=== PATIENT | male | born 1950 | race Caucasian/White ===

== ENCOUNTER 2018-05-06 11:59 | Outpatient (CLI) | payer BC | END 2018-05-06 12:00 | disposition home or self-care (01) | LOC: BICRAD 11:59 | PROVIDERS: ATTEND Family Medicine | DX: M25.561 Pain in right knee (principal); M17.11 Unilateral primary osteoarthritis, right knee ==

== ENCOUNTER 2019-05-28 07:05 | Day surgery (SDC) | payer BC ==
[2019-05-27 14:49] VITALS: BMI 27.4
--- NOTE | 2019-05-28 07:15 | HP ---
HISTORY OF PRESENT ILLNESS: Itz Ashby is a 69-year-old male patient, I performed a right inguinal hernia repair in 2017. He has developed a left inguinal hernia. On exam, he has a left inguinal hernia on standing that enlarges on Valsalva. Plan is to repair that robotically using mesh as an outpatient. He will call the schedule. Medications p.r.n. Viagra. PAST MEDICAL HISTORY: Skin cancer excision, esophageal stricture dilatation, which he has not had to have dilated more than several years. Right inguinal hernia repair in the past. PAST SURGICAL HISTORY: Right inguinal hernia repair in the past, open, that I had performed, esophageal dilatation in 1989. SOCIAL HISTORY: Tobacco, none. Alcohol, occasionally. Drug use, none. ALLERGIES: NONE. FAMILY HISTORY: Noncontributory. REVIEW OF SYSTEMS: Noncontributory. 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 PHYSICAL EXAMINATION: VITAL SIGNS: Weight 179 pounds, height 66 inches, 28 BMI, blood pressure 139/86, pulse 47, temperature 98.2 degrees HEAD, EARS, EYES, NOSE, AND THROAT: Unremarkable. LUNGS: Clear to auscultation. CARDIAC: Regular rate and rhythm without murmur or gallop. ABDOMEN: Soft and nontender. PELVIC: Testicles normal. Right groin without hernia. Left groin hernia present on standing, enlarges on Valsalva. EXTREMITIES: Unremarkable. No ankle edema. NEUROLOGICAL: Intact, no deficit. LYMPH NODES: No lymphadenopathy in neck, groin, or axilla. ASSESSMENT AND PLAN: Left inguinal hernia. PLAN: Robot mesh repair. He understands risks of infection, bleeding, reoperation, recurrence, chronic pain. Job ID: [id number]
[2019-05-28] MEDS ORDERED: Ketorolac Tromethamine 30 MG/ML VIAL ONE (08:07)
[2019-05-28 08:23] LABS: #Basophils 0.1 thou/uL (0.0-0.2); #Eosinphils 0.6 thou/uL (0.0-0.7); #Lymphocytes 2.8 thou/uL (1.20-3.40); %Basophils 0.7 % (0.0-1.0); %Eosinophils 7.5 % (0.0-10.0); %Lymphocytes 33.2 % (21.0-51.0); %Monocytes 11.4 % (0.0-10.0); %Neutrophils 47.3 % (42.0-75.0); Hemoglobin 14.9 g/dL (14.0-18.0); Mean Corpuscular HGB CONC 32.9 g/dL (32.0-36.0); Mean Corpuscular Volume 97.3 fL (78.0-98.0); Mean Platelet Volume 7.5 fL (7.4-10.4); Platelet Count 215 thou/uL (130-400); Red Blood Cell (RBC) Count 4.64 mill/uL (4.70-6.10); White Blood Cell (WBC) Count 8.5 thou/uL (4.8-10.8)
[2019-05-28 08:36] LABS: Anion Gap 11 mmol/L (10-20); BUN (Urea Nitrogen) 21 mg/dL (8.4-25.7); Calc. Creatinine Clearance 79 mL/min (70-130); Carbon Dioxide 25 mmol/L (23-31); Chloride 107 mmol/L (98-107); Estimated GFR-MDRD 77; Glucose 99 mg/dL (80-115); Potassium 3.8 mmol/L (3.5-5.1); Sodium 139 mmol/L (136-145)
[2019-05-28] MEDS ORDERED: Bupivacaine/Epinephrine 0.25% 30 ML VIAL ONE (09:12)
[2019-05-28] MEDS ORDERED: Fentanyl 100 MCG/2 ML VIAL ONE (09:17)
[2019-05-28] MEDS ORDERED: Famotidine/PF 20 mg/2ml Vial ONE (09:17)
[2019-05-28] MEDS ORDERED: HYDROmorphone 2 MG/ML VIAL ONE (11:14)
[2019-05-28] MEDS ORDERED: SUGAMMADEX SODIUM 500 MG/5 ML VIAL ONE (11:28)
--- NOTE | 2019-05-28 16:42 | OP ---
DATE OF PROCEDURE: 05/28/2019 PREOPERATIVE DIAGNOSIS: Left inguinal hernia. POSTOPERATIVE DIAGNOSIS: Left inguinal hernia. PROCEDURE PERFORMED: Robot laparoscopic 3D Bard mesh, large repair of left inguinal hernia. ANESTHESIA: General, local of 0.5% Marcaine with epinephrine 30 mL. DESCRIPTION OF PROCEDURE: The patient was taken to the operating room, where under general anesthesia, Bright catheter placed at the beginning of the procedure and removed at the end. Abdomen was prepared with ChloraPrep and draped in routine fashion. Left paramedian supraumbilical incision made. Pneumoperitoneum to 15 mmHg was obtained with a Veress needle, replaced with an 11 port balloon and laparoscope introduced. Bilateral midabdominal anterior axillary line incision was made on the left and right and 8 mm port was placed. Robot was docked, positioned, and robotic inguinal hernia repair undertaken, creating a peritoneal flap from the anterior superior iliac spine left to the midline, dissecting it free, dissecting it down, retroperitoneal laterally and medially, identified the Art's ligament medially. Inferior epigastric arteries identified and kept free of harm. The hernia sac and a large lipoma of the cord dissected free over at least abn 8-cm segment of the cord structures, which were kept free of harm. 3D Bard mesh large placed over the defect in the retroperitoneum and secured to Art's ligament with 2-0 Vicryl robotically and to the anterior abdominal wall to the left of the inferior epigastric vessels with 2-0 Vicryl. Peritoneal flap closed with continuous suture of 3 V-Loc StrataFix. Good hemostasis had been noted. All instruments and needles were removed. Pneumoperitoneum was reduced. All instruments were removed and all skin incisions were approximated with interrupted subdermal 4-0 Monocryl after left paramedian anterior fascia closed with 0 Vicryl UR needle. Job ID: [id number]
--- NOTE | 2019-05-28 20:04 | EKG ---
Test Reason : PREOP Blood Pressure : / mmHG Vent. Rate : 049 BPM Atrial Rate : 049 BPM P-R Int : 188 ms QRS Dur : 104 ms QT Int : 464 ms P-R-T Axes : 051 010 028 degrees QTc Int : 419 ms Marked sinus bradycardia Abnormal ECG No previous ECGs available Confirmed by GINA REYES, DR. Li ([id number]) on 05/28/2019 8:04:08 PM Referred By: RENY Confirmed By:DR. Jen FUENTES MD
== END 2019-05-28 14:31 | disposition home or self-care (01) ==
LOC: SDC 07:05 → MERGE 14:28 → SDC 14:31
PROVIDERS: ATTEND Specialist
PROC: 0YU64JZ Supplement Left Inguinal Region with Synthetic Substitute, Percutaneous Endoscopic Approach (ICD-10-PCS; principal; 2019-05-28)
DX: K40.90 Unilateral inguinal hernia, without obstruction or gangrene, not specified as recurrent (principal)
CPT/HCPCS: 36415; 80048; 85025; 93005; 93010; C1781; J0131; J0690; J1170; J1885; J3010; S0028

== ENCOUNTER 2022-09-21 08:23 | Outpatient (CLI) | payer BC | END 2022-09-21 08:24 | disposition home or self-care (01) | LOC: RAD 08:23 | PROVIDERS: ATTEND Internal Medicine Critical Care Medicine | DX: R06.00 Dyspnea, unspecified (principal) | CPT/HCPCS: 71046 ==

== ENCOUNTER 2024-08-29 08:59 | Outpatient (CLI) | payer BC ==
[2024-08-29 10:01] LABS: #Basophils 0.05 10x3/uL (0.0-0.2); %Basophils 0.5 % (0.0-1.0); %Eosinophils 5.7 % (0.0-10.0); %Lymphocytes 30.8 % (21.0-51.0); %Monocytes 10.9 % (0.0-10.0); %Neutrophils 51.4 % (42.0-75.0); Hematocrit 42.3 % (42.0-52.0); Hemoglobin 14.6 g/dL (14.0-18.0); Mean Corpuscular HGB CONC 34.5 g/dL (32.0-36.0); Mean Corpuscular Hemoglobin 32.2 pg (27.0-31.0); Mean Corpuscular Volume 93.4 fL (78.0-98.0); Mean Platelet Volume 9.7 fL (7.4-10.4); Platelet Count 277 10x3/uL (130-400); RBC Distribution Width 12.3 % (11.5-14.5); Red Blood Cell (RBC) Count 4.53 mill/uL (4.70-6.10)
[2024-08-29 10:35] LABS: SARS-CoV-2 E Target Negative; SARS-CoV-2 N2 Target Negative; SARS-CoV-2 NAA Rapid Test Not Detected (NotDetected); SARS-CoV-2 RdRP gene Negative
== END 2024-08-29 09:00 | disposition home or self-care (01) ==
LOC: LABBT 08:59
PROVIDERS: ATTEND Orthopaedic Surgery
DX: Z01.818 Encounter for other preprocedural examination (principal); G56.01 Carpal tunnel syndrome, right upper limb
CPT/HCPCS: 85025; U0002

== ENCOUNTER 2024-09-11 06:00 | Day surgery (SDC) | payer BC, MEDICARE ==
[2024-09-10 13:22] VITALS: BMI 27.7
[2024-09-11] MEDS ORDERED: Bupivacaine PF 0.5% 30 ML VIAL ONE ×2 (06:56→08:20)
[2024-09-11] MEDS ORDERED: Midazolam HCl 2 mg/2 ml Vial ONE (06:58)
[2024-09-11] MEDS ORDERED: fentaNYL PF 100 MCG/2 ML SYRINGE ONE (06:58)
[2024-09-11] MEDS ORDERED: CEFAZOLIN 2 GM VIAL ONE (07:14)
[2024-09-11] MEDS ORDERED: PROPOFOL 40 ML ONE (07:29)
[2024-09-11] MEDS ORDERED: Bupivacaine HCl 0.5%/Epinephrine 1:200,000/PF 30 ml Vial ONE (07:41)
[2024-09-11] MEDS ORDERED: Lidocaine 1% PF 5 ML VIAL ONE (07:41)
[2024-09-11] MEDS ORDERED: Dexamethasone 20 MG/5 ML VIAL ONE (07:41)
[2024-09-11] MEDS ORDERED: Ondansetron PF 4 MG/2 ML Vial ONE (07:41)
[2024-09-11] MEDS ORDERED: Glycopyrrolate 0.2 MG/ML 5 ML SYRINGE ONE (07:42)
[2024-09-11] MEDS ORDERED: ePHEDrine Sulfate 50 MG/10 ML VIAL ONE (07:52)
== END 2024-09-11 09:30 | disposition home or self-care (01) ==
LOC: SDC 06:00
PROVIDERS: ATTEND Orthopaedic Surgery
PROC: 01N54ZZ Release Median Nerve, Percutaneous Endoscopic Approach (ICD-10-PCS; principal; 2024-09-11)
PROC: 3E0T3BZ Introduction of Anesthetic Agent into Peripheral Nerves and Plexi, Percutaneous Approach (ICD-10-PCS; principal; 2024-09-11)
DX: G56.03 Carpal tunnel syndrome, bilateral upper limbs (principal); G56.23 Lesion of ulnar nerve, bilateral upper limbs; M18.0 Bilateral primary osteoarthritis of first carpometacarpal joints; Z86.16 Personal history of COVID-19; Z85.828 Personal history of other malignant neoplasm of skin; Z98.890 Other specified postprocedural states; Z79.899 Other long term (current) drug therapy
CPT/HCPCS: A6223; J0665; J1100; J2250; J2405; J2704

== ENCOUNTER 2024-10-02 06:11 | Day surgery (SDC) | payer BC, MEDICARE ==
[2024-10-01 09:42] VITALS: BMI 27.4
[2024-10-02] MEDS ORDERED: Bupivacaine PF 0.5% 30 ML VIAL ONE (06:27)
[2024-10-02] MEDS ORDERED: CEFAZOLIN 2 GM VIAL ONE (07:05)
[2024-10-02] MEDS ORDERED: Ketorolac Tromethamine 30 MG (1 mL) VIAL ONE (07:12)
[2024-10-02] MEDS ORDERED: Ondansetron PF 4 MG/2 ML Vial ONE (07:12)
[2024-10-02] MEDS ORDERED: Lidocaine 1% PF 5 ML VIAL ONE (07:12)
[2024-10-02] MEDS ORDERED: fentaNYL 50 mcg/mL 1 mL Vial ONE (07:12)
[2024-10-02] MEDS ORDERED: PROPOFOL 20 ML ONE (07:12)
== END 2024-10-02 10:08 | disposition home or self-care (01) ==
LOC: SDC 06:11
PROVIDERS: ATTEND Orthopaedic Surgery
PROC: 01N54ZZ Release Median Nerve, Percutaneous Endoscopic Approach (ICD-10-PCS; principal; 2024-10-02)
DX: G56.03 Carpal tunnel syndrome, bilateral upper limbs (principal); G56.23 Lesion of ulnar nerve, bilateral upper limbs; M18.11 Unilateral primary osteoarthritis of first carpometacarpal joint, right hand; M18.12 Unilateral primary osteoarthritis of first carpometacarpal joint, left hand; K21.9 Gastro-esophageal reflux disease without esophagitis; K22.89 Other specified disease of esophagus; Z79.899 Other long term (current) drug therapy; Z87.19 Personal history of other diseases of the digestive system
CPT/HCPCS: A6223; J0665; J1885; J2405; J2704; J3010